=== PATIENT | male | born 1970 | race Caucasian/White ===

== ENCOUNTER → 2020-11-20 | Outpatient (CLI) | payer BC ==
--- NOTE | 2020-11-20 15:29 | RAD ---
XR FOOT_LEFT 3 VIEWS DATE: 11/20/2020 2:08 PM INDICATION: LEFT FOOT PAIN WITH KNOT ON THE BOTTOM OF HIS FOOT COMPARISON: None. FINDINGS: Bones: There is no evidence of acute fracture or dislocation. Posterior and plantar calcaneal entheso phytes. Joints: The joint spaces are normal. Miscellaneous: None. IMPRESSION: No acute osseous abnormality. Posterior and plantar calcaneal enthesophytes. Electronically signed by: Osvaldo Chávez MD (11/20/2020 3:27 PM) [id number]
== END ==
LOC: RAD 13:42
PROVIDERS: ATTEND Podiatrist
DX: M77.32 Calcaneal spur, left foot (principal); M79.672 Pain in left foot
CPT/HCPCS: 73630